=== PATIENT | female | born 1955 | race Caucasian/White ===

== ENCOUNTER → 2018-07-30 | Day surgery (SDC) | payer OTHER ==
[~2018-07-30] MED LIST: BYSTOLIC10 MG PO; CRESTOR10 MG; DEXILANT60 MG PO; FENTANYL CITRATE/PF 100MCG/2 ML INJ ONE; GLUCAGON FOR INJ 1 MG VIAL ONE; HYOSCYAMINE SULFATE 0.5 MG/ML INJ ONE; MAGNESIUM200 MG PO; METOPROLOL TART50 MG PO; MIDAZOLAM HCL 2 MG/2 ML VIAL ONE; PROPOFOL IV EMULSION 10 MG/ML 50 ML VIAL ONE; SYMBICORT 16010.2 GM
--- OUTSIDE RECORDS SUMMARY | 2018-07-30 10:50 | XMS REPORT | Clinical Summary ---
Author Author [facility] Address Unknown Phone Unavailable Care Team Providers Care Jump Roll Operator Name Role Phone Jayesh Shell MD PCP Unavailable Allergies Comments Active Allergy Reactions Severity Noted Date Levofloxacin 07/08/2018 Medications End Date Status Medication Sig Dispensed Refills Start Date Active budesonide-formoterol Inhale 2 0 (SYMBICORT) 80-4.5 puffs 2 (two) mcg/actuation inhaler times a day. Active BYSTOLIC 5 mg tablet 0 9 Active rosuvastatin (CRESTOR) 10 0 MG tablet 8 Active clobetasol (TEMOVATE) Use minimal 30 g 0 0.05 % cream amount BID 9 for a couple weeks then take a break 07/08/2019 Active conjugated estrogens Insert 0.5 g 30 g 1 (PREMARIN) 0.625 mg/gram into the 9 vaginal cream vagina daily. 12/08/2017 clobetasol (TEMOVATE) Apply 30 g 0 0.05 % cream topically 2 7 (two) times a day. Active Problems Problem Noted Date Family history of breast cancer in mother adn 2 Mat aunts 07/08/2018 Lichenification of vulva 12/18/2015 Encounters Care Team Description Date Type Specialty Shane Boone III, MD Thoracic spine pain (Primary Dx) 07/23/2018 Office Visit Orthopedic Surgery Kristel Sampson MD Well woman exam with routine gynecological exam (Primary Dx); Screening for breast cancer; Breast pain 07/08/2018 Office Visit Obstetrics and Gynecology Jayesh Shell MD Pleurisy 06/17/2018 Hospital Radiology Encounter Jayesh Shell MD Pleurisy (Primary Dx) 06/17/2018 Transcribe Access Orders after 07/29/2017 Family History Medical History Relation Name Comments Heart disease Father 55 heart attack Cancer Maternal Aunt Breast Cancer Maternal Aunt Breast Breast cancer Mother Cancer Mother Breast 83 Cancer Paternal Uterus Dx 60's Grandmother Cancer Sister Colon 62 Relation Name Status Comments Father Maternal Aunt Maternal Aunt Maternal Grandfather killed MVA Maternal Grandmother killed MVA Mother Paternal Grandmother Sister Social History Date Tobacco Use Types Packs/Day Years Used Never Smoker Smokeless Tobacco: Never Used Alcohol Use Drinks/Week oz/Week Comments No Sex Assigned at Date Recorded Not on file Industry Job Start Date Occupation Not on file Not on file Not on file Travel End Travel History Travel Start No recent travel history available. Last Filed Vital Signs Time Taken Vital Sign Reading 07/23/2018 9:25 AM SERVICES ENGINEER Blood Pressure 137/90 07/08/2018 10:56 AM SERVICES ENGINEER Pulse 65 - Temperature - - Respiratory Rate - - Oxygen Saturation - - Inhaled Oxygen - Concentration 07/23/2018 9:25 AM SERVICES ENGINEER Weight 99.8 kg (220 lb) 07/23/2018 9:25 AM SERVICES ENGINEER Height 160 cm (5' 3") 07/23/2018 9:25 AM SERVICES ENGINEER Body Mass Index 38.97 Plan of Treatment Care Team Description Date Type Specialty ArdiánKristel MD [address] [facility] [address] [place], [place] [id number] 08/02/2018 Appointment Radiology VisusRani MD [address] [facility] [address] [place] [address] 2018 Office Visit Internal Medicine Health Maintenance Due Date Last Done Comments COLON CANCER SCREENING 2004 SHINGLES VACCINES (#1) 2004 INFLUENZA VACCINE 01/06/2018 CERVICAL CANCER SCREENING 05/17/2018 05/17/2015 BREAST CANCER SCREENING 01/27/2019 01/27/2017, 01/27/2017, 06/15/2015 Procedures Comments Procedure Name Priority Date/Time Associated Diagnosis XR THORACIC SPINE 2 VW Routine 07/23/2018 Thoracic spine pain 9:44 AM SERVICES ENGINEER [place] INJECT TRIGGER POINT, Routine 07/23/2018 Thoracic spine pain 1 OR 2 9:[address] ANGIOGRAM PE CHEST Routine 06/17/2018 Pleurisy 6:44 PM SERVICES ENGINEER ESTIMATED GFR Routine 06/17/2018 6:25 PM SERVICES ENGINEER POC CREATININE Routine 06/17/2018 6:25 PM SERVICES ENGINEER after 07/29/2017 Results * XR Thoracic Spine 2 Vw (07/23/2018 9:44 AM SERVICES ENGINEER) Narrative Performed At [facility] AP and lateral thoracic spine: Age-related degenerative changes. Performing Organization Address City/State/Zipcode Phone Number [facility] [address] [place] [address] * 1 or 2 Trigger Point Injection: R thoracic (07/23/2018 9:40 AM SERVICES ENGINEER) Narrative Performed At Shane Boone III, MD 07/23/2018 10:23 AM 1 or 2 Trigger Point Injection: R thoracic Date/Time: 07/23/2018 10:03 AM Performed by: Shane Boone III, MD Authorized by: Shane Boone III, MD Consent: Consent obtained:Verbal Consent given by:Patient Indications: Indications:Pain relief Location: Therapeutic Trigger Point Injection:Single/multiple trigger point(s): 1-2 muscle groups Location: back Back location injected:R thoracic (right scapular area) Platelet Rich Plasma Used: no PRP Used EMG Guidance Used: no emg guidance used Right side: Right Thoracic Medications administered: 1 mL lidocaine 10 mg/mL (1 %); 6 mg betamethasone acetate & sodium phosphate 6 mg/mL Pre-procedure details: Neurovascular status: intact Skin preparation:Alcohol Procedure details: Syringe type:Luer lock syringe Needle gauge:25 G Post-procedure details: Patient tolerance of procedure:Tolerated well, no immediate complications * CT Angiogram Pe Chest (06/17/2018 6:44 PM SERVICES ENGINEER) Narrative Performed At EXAMINATION: [facility] CT ANGIOGRAM PE CHEST CLINICAL HISTORY: R09.1 Pleurisy, R09.1 TECHNIQUE: CT angiographic images of the chest were obtained during intravenous administration of iodinated contrast. Computerized reformatted images and 3-D MIP images were also obtained and archived (CT pulmonary embolus protocol).CT imaging was performed with iterative reconstruction technique and/or automated exposure control to reduce radiation dose. COMPARISON: None. FINDINGS: The heart size is markedly enlarged. There is ectasia of ascending aorta to 4.2 cm. The pulmonary artery is of of normal caliber. No enlarged mediastinal lymph node is seen. No filling defect is seen in the visible pulmonary arterial tree. There is therefore no CT evidence of pulmonary embolus. A of couple mildly enlarged right hilar lymph nodes are seen. There is a small hiatal hernia. There is mild bilateral bronchial wall thickening. Mild bilateral bronchiectasis is present The liver, gallbladder, pancreas, spleen, adrenals, and kidneys are within normal limits. IMPRESSION: Cardiomegaly. No evidence of pulmonary embolus. Bilateral bronchial wall thickening and mild bronchiectasis. [facility]-[id number] Procedure Note Interface, Radiology Results Incoming - 06/17/2018 7:22 PM SERVICES ENGINEER EXAMINATION: CT ANGIOGRAM PE CHEST CLINICAL HISTORY: R09.1 Pleurisy, R09.1 TECHNIQUE: CT angiographic images of the chest were obtained during intravenous administration of iodinated contrast. Computerized reformatted images and 3-D MIP images were also obtained and archived (CT pulmonary embolus protocol).CT imaging was performed with iterative reconstruction technique and/or automated exposure control to reduce radiation dose. COMPARISON: None. FINDINGS: The heart size is markedly enlarged. There is ectasia of ascending aorta to 4.2 cm. The pulmonary artery is of of normal caliber. No enlarged mediastinal lymph node is seen. No filling defect is seen in the visible pulmonary arterial tree. There is therefore no CT evidence of pulmonary embolus. A of couple mildly enlarged right hilar lymph nodes are seen. There is a small hiatal hernia. There is mild bilateral bronchial wall thickening. Mild bilateral bronchiectasis is present The liver, gallbladder, pancreas, spleen, adrenals, and kidneys are within normal limits. IMPRESSION: Cardiomegaly. No evidence of pulmonary embolus. Bilateral bronchial wall thickening and mild bronchiectasis. [facility]-[id number] Performing Organization Address City/State/Zipcode Phone Number [facility] [address] [place] [address] * Estimated GFR (06/17/2018 6:25 PM SERVICES ENGINEER) Estimated GFR >=90 mL/min/1.73 m2 [facility] Comment: HOSPITAL CatergoryUnitsInte rpretation G1 >=90 Normal or high G2 60-89Mildly decreased [id number] Mildly to moderately decreased [id number] Moderately to severely decreased G4 15-29Severely decreased G5 <15Kidney failure The eGFR was calculated using the Chronic Kidney Disease Epidemiology Collaboration (CKD-EPI) equation. Interpretation is based on recommendations of the National Kidney Foundation-Kidney Disease Outcomes Quality Initiative (NKF-KDOQI) published in 2014. Specimen Blood Performing Organization Address City/[facility] Phone Number [facility] DEPARTMENT OF [address] [place] [address] PATHOLOGY [place] [address] HOSPITAL * POC creatinine (06/17/2018 6:25 PM SERVICES ENGINEER) POC creatinine 0.6 0.5 - 0.9 mg/dl [facility] Comment: HOSPITAL Meter ID: [id number] Language Path: Reid Palomo Specimen Blood Performing Organization Address [facility] Phone Number [facility] [place] [address] PATHOLOGY AND GENOMIC MEDIC[place] [address] HOSPITAL after 07/29/2017 Insurance Payer Benefit Subscriber ID Type Phone Address Plan / Group CIGNA CIGNA OPEN xxxxxxxxxxx HMO ACCESS/NET WORK Advance Directives Patient has advance care planning documents on file. For more information, manpreet mcfarlane contact: Aaron Madrigal [address] [place] [phone]
[2018-07-30 17:15] VITALS: BP 120/71
--- NOTE | 2018-07-31 07:21 | Operative Report ---
DATE OF PROCEDURE: 07/30/2018 SURGEON: Domo Bryson MD PROCEDURES: EGD with biopsies, esophageal dilatation, and colonoscopy with polypectomy. INDICATIONS FOR EGD: Dysphagia, heart burn, and upper abdominal pain. INDICATION FOR COLONOSCOPY: Surveillance colonoscopy, personal history of colon polyps. MEDICATIONS: The patient was done under MAC. Please see anesthesiologist's note. PROCEDURE IN DETAIL: With the patient in left lateral decubitus position, a flexible fiberoptic Olympus gastroscope was introduced into the esophagus under direct visualization without any difficulty. There was some patchy erythema noted in the distal esophagus. There was an ulcerated stricture noted at the GE junction, that was dilated to size 52-Brazilian Garcia. The scope was then advanced with ease into the stomach, traversing a small hiatal hernia. Mucosa overlying the antrum of the body revealed some patchy arrhythmia, low grade to moderate edema, and biopsies were obtained and sent to stain for H. pylori. Pylorus appeared to be with normal contour and shape, was intubated with ease and the scope was advanced all the way to the second portion of the duodenum. The scope was then withdrawn slowly and biopsies were obtained from the proximal second portion on the duodenal bulb to rule out sprue. The scope was then withdrawn back into the stomach and retroflexed. Mucosa overlying the fundus and the cardia appeared to be within normal limits. The scope was then straightened out. It was subsequently withdrawn. The patient tolerated the procedure well. IMPRESSION: 1. Distal esophagitis. 2. Esophageal stricture at GE junction; ulcerated, dilated to size 52-Brazilian Garcia. 3. Small hiatal hernia. 4. Gastritis, biopsied. Biopsies sent to stain for Helicobacter pylori. 5. Rule out Sprue. PLAN: Followup pathology. Initiate Protonix 40 mg one p.o. q.a.m. a.c. The patient was then turned around after adequate lubrication of the anal canal. A flexible fiberoptic Olympus colonoscope was inserted into the rectum with ease and advanced all the way to the cecum. The scope was then withdrawn slowly and the mucosa overlying the cecum overall appeared to be within normal limits. One polyp was hot biopsied. The right colon was suboptimally prepped with some retained fecal material. Whatever was visualized in the mucosa overlying the ascending, transverse, descending, and sigmoid grossly appeared to be within normal limits. There was some diverticular disease noted. One polyp was hot biopsied from the rectum. The scope was then retroflexed into the distal rectum and small internal hemorrhoids were noted, none of which were actively bleeding. The scope was then straightened out and was subsequently withdrawn. The patient tolerated the procedure well. IMPRESSION: 1. Cecal polyp, hot biopsied. 2. Minimal diverticulosis. 3. Rectal polyp, hot biopsied. 4. Internal hemorrhoids, none actively bleeding. PLAN: Followup pathology. Initiate high-fiber and low-fat diet. Initiate high-fiber supplement. The patient might benefit from a followup colonoscopy in 5 years. Domo Bryson MD [facility] [place] /[id number] cc: MD Domo Monge MD
== END | disposition home or self-care (01) ==
LOC: OR 10:47
PROVIDERS: ATTEND Internal Medicine Gastroenterology
DX: Z12.11 Encounter for screening for malignant neoplasm of colon (principal); Z86.010 Personal history of colon polyps; R12 Heartburn; R13.10 Dysphagia, unspecified; E66.01 Morbid (severe) obesity due to excess calories; I10 Essential (primary) hypertension; K21.9 Gastro-esophageal reflux disease without esophagitis; J45.909 Unspecified asthma, uncomplicated; Z96.641 Presence of right artificial hip joint; Z82.49 Family history of ischemic heart disease and other diseases of the circulatory system; Z80.3 Family history of malignant neoplasm of breast; Z80.8 Family history of malignant neoplasm of other organs or systems; R11.0 Nausea; R10.11 Right upper quadrant pain; K20.9 Esophagitis, unspecified; K22.2 Esophageal obstruction; K44.9 Diaphragmatic hernia without obstruction or gangrene; K63.5 Polyp of colon; K62.1 Rectal polyp; K64.8 Other hemorrhoids; K57.30 Diverticulosis of large intestine without perforation or abscess without bleeding; D12.0 Benign neoplasm of cecum; K29.50 Unspecified chronic gastritis without bleeding
CPT/HCPCS: 43239; 43450; 45384; 93005; J1610; J1980; J2250; J2704; 45378; 45385

== ENCOUNTER → 2021-09-07 | Day surgery (SDC) | payer MEDICARE, OTHER ==
[2021-09-04 12:21] LABS: BASOPHILS % 0.5 % (0.0-1.0); EOSINOPHILS # (AUTO) 0.3 (0.0-0.4); EOSINOPHILS % 3.4 % (0.0-6.0); HEMATOCRIT 39.8 % (34.2-44.1); HEMOGLOBIN 13.1 g/dL (12.0-16.0); LYMPHOCYTES # (AUTO) 2.3 (1.0-3.2); LYMPHOCYTES % 28.2 % (18.0-39.1); MEAN CORPUSCULAR HGB CONC 32.9 g/dL (31-35); MEAN CORPUSCULAR VOLUME 94.1 fL (81-99); MONOCYTES # (AUTO) 0.5 (0.2-0.8); MONOCYTES % 6.1 % (4.4-11.3); NEUTROPHILS # (AUTO) 5.1 (2.1-6.9); NEUTROPHILS % 61.6 % (38.7-80.0); PLATELET COUNT 244 x10e3/uL (140-360); RED BLOOD COUNT 4.23 x10e6/uL (3.6-5.1); RED CELL DISTRIBUTION WIDTH 14.4 % (11.7-14.4)
[~2021-09-07] MED LIST changes: -CRESTOR10 MG; +CRESTOR10 MG PO; -GLUCAGON FOR INJ 1 MG VIAL ONE; +LIDOCAINE HCL 2% LOCAL INJ 5 ML SDV VIAL INJ ONE; -MIDAZOLAM HCL 2 MG/2 ML VIAL ONE; +MULTI-VITAMIN1 EACH PO; +PANTOPRAZOLE SO20 MG PO; +PLAQUENIL200 MG PO; +PROPOFOL IV EMULSION 10 MG/ML 20 ML VIAL ONE; -PROPOFOL IV EMULSION 10 MG/ML 50 ML VIAL ONE; +VITAMIN C1000 MG PO; +VITAMIN D310 MCG PO; +ZINC PO
[2021-09-07 09:15] VITALS: BP 122/64
== END | disposition home or self-care (01) ==
LOC: OR 06:27
PROVIDERS: ATTEND Internal Medicine Gastroenterology
DX: K20.90 Esophagitis, unspecified without bleeding (principal); Z86.010 Personal history of colon polyps; K31.7 Polyp of stomach and duodenum; K29.50 Unspecified chronic gastritis without bleeding; K59.00 Constipation, unspecified; K21.9 Gastro-esophageal reflux disease without esophagitis; K63.89 Other specified diseases of intestine; K57.30 Diverticulosis of large intestine without perforation or abscess without bleeding; K64.8 Other hemorrhoids; K76.0 Fatty (change of) liver, not elsewhere classified; G47.33 Obstructive sleep apnea (adult) (pediatric); I10 Essential (primary) hypertension; E78.5 Hyperlipidemia, unspecified; I44.7 Left bundle-branch block, unspecified; M06.9 Rheumatoid arthritis, unspecified; M19.90 Unspecified osteoarthritis, unspecified site; Z01.810 Encounter for preprocedural cardiovascular examination; Z01.812 Encounter for preprocedural laboratory examination; Z20.822 Contact with and (suspected) exposure to COVID-19; Z79.899 Other long term (current) drug therapy; Z95.0 Presence of cardiac pacemaker; Z80.0 Family history of malignant neoplasm of digestive organs
CPT/HCPCS: 36415; 43239; 43450; 45378; 85025; 88305; 88312; 93005; J1980; J2001; J2704; U0002; J3010

== ENCOUNTER → 2024-08-18 | Day surgery (SDC) | payer MEDICARE, OTHER ==
[2024-08-15 11:20] LABS: BASOPHILS % 0.4 % (0.0-1.0); EOSINOPHILS # (AUTO) 0.2 (0.0-0.4); EOSINOPHILS % 2.5 % (0.0-6.0); HEMATOCRIT 40.4 % (34.2-44.1); HEMOGLOBIN 13.7 g/dL (12.0-16.0); LYMPHOCYTES # (AUTO) 2.4 (1.0-3.2); LYMPHOCYTES % 31.8 % (18.0-39.1); MEAN CORPUSCULAR HEMOGLOBIN 31.6 pg (28-32); MEAN CORPUSCULAR HGB CONC 33.9 g/dL (31-35); MEAN CORPUSCULAR VOLUME 93.1 fL (81-99); MONOCYTES # (AUTO) 0.6 (0.2-0.8); MONOCYTES % 7.5 % (4.4-11.3); NEUTROPHILS # (AUTO) 4.3 (2.1-6.9); NEUTROPHILS % 57.5 % (38.7-80.0); PLATELET COUNT 268 x10e3/uL (140-360); RED BLOOD COUNT 4.34 x10e6/uL (3.6-5.1); RED CELL DISTRIBUTION WIDTH 14.6 % (11.7-14.4); WHITE BLOOD COUNT 7.49 x10e3/uL (4.8-10.8)
[~2024-08-18] MED LIST changes: +GLUCAGON FOR INJ 1 MG VIAL ONE; -HYOSCYAMINE SULFATE 0.5 MG/ML INJ ONE; +METOCLOPRAMIDE HCL 10 MG/2ML VIAL ONE; +MIDAZOLAM HCL 2 MG/2 ML VIAL ONE; +PROPOFOL IV EMULSION 50 ML IV ONE
[2024-08-18] MEDS: LACTATED RINGER'S 1,000 ML ONE (07:57)
[2024-08-18 09:51] VITALS: TEMP 97.4
[2024-08-18 10:20] VITALS: BP 130/80; PULSE 61; RESP 16; O2SAT 97
== END | disposition home or self-care (01) ==
LOC: OR 06:34
PROVIDERS: ATTEND Internal Medicine Gastroenterology
DX: K22.2 Esophageal obstruction (principal); K63.5 Polyp of colon; K31.7 Polyp of stomach and duodenum; K29.70 Gastritis, unspecified, without bleeding; K44.9 Diaphragmatic hernia without obstruction or gangrene; K21.9 Gastro-esophageal reflux disease without esophagitis; K57.30 Diverticulosis of large intestine without perforation or abscess without bleeding; K64.8 Other hemorrhoids; R05.9 Cough, unspecified; I44.0 Atrioventricular block, first degree; I44.7 Left bundle-branch block, unspecified; I10 Essential (primary) hypertension; E78.5 Hyperlipidemia, unspecified; E66.01 Morbid (severe) obesity due to excess calories; Z88.8 Allergy status to other drugs, medicaments and biological substances; Z01.810 Encounter for preprocedural cardiovascular examination; Z01.812 Encounter for preprocedural laboratory examination; Z79.899 Other long term (current) drug therapy; Z95.0 Presence of cardiac pacemaker; Z80.0 Family history of malignant neoplasm of digestive organs
CPT/HCPCS: 36415; 43239; 43450; 45385; 85025; 88305; 93005; J1610; J2003; J2250; J2470; J2704 ×2; J2765; J3010; J7121; 45378